=== PATIENT | female | born 1965 | race Two or more races ===

== ENCOUNTER 2020-08-02 06:40 | Day surgery (SDC) | payer OTHER ==
[~2020-08-02 06:40] MED LIST: CRESTOR20 MG PO; FLONASE16 GM; HYDROCHLOROTH12.5 MG PO; LIPOFEN150 MG PO; MICARDIS80 MG PO; NORTRIPTYLINE H25 MG PO
[2020-08-03] MEDS ORDERED: COZAAR100 MG PO (15:20)
== END 2020-08-02 21:10 | disposition home or self-care (01) ==
LOC: CIR.AMB 06:40
PROVIDERS: ATTEND Colon & Rectal Surgery
DX: K64.8 Other hemorrhoids (principal); K64.4 Residual hemorrhoidal skin tags; Z20.828 Contact with and (suspected) exposure to other viral communicable diseases

== ENCOUNTER 2020-08-03 14:49 | Emergency (ER) | payer OTHER ==
[~2020-08-03] VITALS: Ht 172.7 cm; Wt 99.8 kg
[2020-08-03] MEDS ORDERED: COZAAR100 MG PO (15:20)
== END 2020-08-03 18:29 | disposition home or self-care (01) ==
LOC: ER 14:49
DX: Z46.6 Encounter for fitting and adjustment of urinary device (principal)